=== PATIENT | female | born 1945 | race Caucasian/White ===

== ENCOUNTER 2023-05-03 11:14 | Emergency (ER) | payer MEDICARE, BC ==
[2023-05-03 11:41] VITALS: BP 158/95; PULSE 79; RESP 20; TEMP 97.7; O2SAT 95
--- NOTE | 2023-05-03 11:57 | ERPHSYRPT ---
- History of Present Illness Time Seen by Provider: 05/03/23 11:54 Source: patient Exam Limitations: no limitations Patient Subjective Stated Complaint: C/O left sided rib pain following a fall on Thursday Triage Nursing Assessment: Patient ambulated back to ER. No SOB. No cough. She is alert and oriented. No bruising noted to areas of pain. 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 Physician History: C/O left sided rib pain following a fall on Thursday(5 days ago) States it hurts to bad in left rib area to deep breath. Timing/Duration: day(s) (5 days ago) Severity: moderate Associated Symptoms: other (pain with deep breath) Allergies/Adverse Reactions: doxycycline Allergy (Verified 05/03/23 11:26) erythromycin base [Erythromycin Base] Allergy (Verified 05/03/23 11:24) Hives latex Allergy (Verified 05/03/23 11:24) Hives octreotide Allergy (Verified 05/03/23 11:26) paper tape Allergy (Uncoded 05/03/23 11:24) Hives Home Medications: Cholecalciferol (Vitamin D3) [Cholecalciferol] 0 gm MC DAILY 06/23/13 [History] Furosemide 80 mg [Lasix 80 mg] 80 mg PO DAILY 06/23/13 [History] Glimepiride 4 mg [Amaryl 4 mg] 4 mg PO DAILY 06/23/13 [History] Omeprazole 20 MG [Prilosec 20 mg] 20 mg PO DAILY 06/23/13 [History] Potassium Chloride 20 Meq [Klor-Con 20 MEQ] 20 meq PO DAILY 06/23/13 [History] Rifaximin [Xifaxan] 550 mg PO BID 06/23/13 [History] Spironolactone 25 mg [Aldactone 25 MG] 25 mg PO BID 06/23/13 [History] Zinc 220 mg PO DAILY 06/23/13 [History] atenoloL [Atenolol] 100 mg PO DAILY 06/23/13 [History] Hx Tetanus, Diphtheria Vaccination/Date Given: Yes Hx Influenza Vaccination/Date Given: Yes Hx Pneumococcal Vaccination/Date Given: Yes Immunizations Up to Date: Yes Travel Risk - International Travel Have you traveled outside of the country in past 3 weeks: No - Coronavirus Screening Are you exhibiting any of the following symptoms?: No Close contact with a COVID-19 positive Pt in past 14-21 Days: No - Vaccine Status Have you recieved a Covid-19 vaccination: No - Review of Systems Constitutional: No Symptoms Eyes: No Symptoms Ears, Nose, & Throat: No Symptoms Respiratory: No Symptoms Cardiac: No Symptoms Abdominal/Gastrointestinal: No Symptoms Genitourinary Symptoms: No Symptoms Musculoskeletal: Fall, Other (left rib cage pain) Skin: No Symptoms Neurological: No Symptoms Psychological: No Symptoms Endocrine: No Symptoms Hematologic/Lymphatic: No Symptoms Immunological/Allergic: No Symptoms - Past Medical History Pertinent Past Medical History: Yes Neurological History: No Pertinent History Cardiac History: Hypertension Respiratory History: Other Endocrine Medical History: Diabetes Type II, Liver Disease Musculoskeletal History: Fractures, Osteoporosis GI Medical History: Cirrhosis, Gallbladder Disease, Other Other Medical History: LAUGHLIN, FX STERNUM - Past Surgical History Past Surgical History: Yes Gastrointestinal: Appendectomy, Cholecystectomy, Other Musculoskeletal: Joint Replacement, Other Female Surgical History: Hysterectomy Other Surgical History: Liver transplant 10/28/15, right knee replacement, carpel tunnel, paracentesis, spleenectomy - Social History Smoking Status: Never smoker Exposure to second hand smoke: No Drug Use: none Patient Lives Alone: No - Nursing Vital Signs Nursing Vital Signs: Initial Vital Signs Temperature 97.7 F 05/03/23 11:15 Pulse Rate 79 05/03/23 11:15 Respiratory Rate 20 05/03/23 11:15 Blood Pressure 158/95 05/03/23 11:15 O2 Sat by Pulse Oximetry 95 05/03/23 11:15 Pain Scale Pain Intensity 10 - Physical Exam General Appearance: no apparent distress Eye Exam: PERRL/EOMI Ears, Nose, Throat Exam: normal ENT inspection Neck Exam: normal inspection Respiratory Exam: normal breath sounds, chest tenderness Cardiovascular Exam: regular rate/rhythm, normal heart sounds Gastrointestinal/Abdomen Exam: soft SpO2: 95 - Course Nursing assessment & vital signs reviewed: Yes - Radiology Exams Chest X-ray Interpretation: Reviewed by me, Negative, No Fracture Ribs X-ray Interpretation: Reviewed by me Ordered Tests: Active Orders 24 hr Category Date Time Status CHEST 1 VIEW (PORTABLE) Stat Exams 05/03/23 11:38 Taken RIBS UNILATERAL Stat Exams 05/03/23 11:30 Taken Medication Summary Discontinued Medications Generic Name Dose Route Start Last Admin Trade Name Veronique PRN Reason Stop Dose Admin Lidocaine 1 patch 05/03/23 12:17 05/03/23 12:31 Lidocaine Hcl 1 Patch Patch TOP 05/03/23 12:18 1 patch ONCE ONE Administration - Progress Progress: improved, pain not gone completely Counseled pt/family regarding: diagnosis, need for follow-up, rad results Medical Desision Making - Diagnostic Testing Diagnostic test were ordered, analyzed, and reviewed by me: Yes Radiological Interpretation: Interpreted by me - Risk of complications Low Risk: Low risk of morbidity from additional dx testing or treatment - Departure Departure Disposition: Home Clinical Impression: Contusion of rib on left side Qualifiers: Encounter type: initial encounter Qualified Code(s): S20.212A - Contusion of left front wall of thorax, initial encounter Fall Qualifiers: Encounter type: initial encounter Qualified Code(s): W19.XXXA - Unspecified fall, initial encounter Condition: Stable Critical Care Time: No Referrals: HERO CRUZ MD [Primary Care Provider] - Follow Up with PCP/3 days Instructions: Breathing Exercises, Bruised Rib Additional Instructions: Discharge/Care Plan CHEPE RILEY was seen on 05/03/23 in the Emergency Room. The patient was counseled regarding Diagnosis,Lab results, Imaging studies, need for follow up and when to return to the Emergency Room. Prescriptions given: Discharge Note I have spoken with the patient and/or caregivers. I have explained the patient's condition, diagnosis and treatment plan based on the information available to me at this time. I have answered the patient's and/or caregiver's questions and addressed any concerns. The patient and/or caregivers have as good understanding of the patient's diagnosis, condition and treatment plan as can be expected at this point. The vital signs have been stable. The patient's condition is stable and appropriate for discharge from the emergency department. The patient will pursue further outpatient evaluation with the primary care physician or other designated or consulting physician as outlined in the discharge instructions. The patient and/or caregivers are agreeable to this plan of care and follow-up instructions have been explained in detail. The patient and/or caregivers have received these instruction. The patient/and or caregivers are aware that any significant change in condition or worsening of symptoms should prompt an immediate return to this or the closest emergency department or call 911. CHEPE RILEY was seen on 05/03/23 n the Emergency Room. At that time you were treated for an emergent condition, during your visit Laboratory, Radiology and/or other procedures may have been ordered. It is very important that you follow-up with your Primary Care Physician HERO CRUZ within the next 24-48 hours to review your Emergency Room visit and the final results of testing that was ordered. Some test results such as Urine Cultures, Blood Cultures, and other cultures if ordered will not be finalized for 24-48 hours. If you do not have a Primary Care Provider please call the medical records department at [phone] ext [phone] to obtain a copy of your results or you may sign into our patient portal to obtain these results by visiting us @ [email or web address] and completing the following steps: 1. Click on the Patient Portal link 2. Click the Patient Self Enrollment Link to complete the enrollment form and entering your 3. Once the enrollment form is completed you will receive an email with a temporary ID and password at the email address you provided. 4. Next choose a user name and password. Your user name must be at least 4 characters long and your password must be at least 4 characters long. 5. Choose a security question from the list and provide your answer to the question. If you already have signed into the Health Portal you may access your Health Care Information 27/04 by the following steps: 1. Login to our website @ [email or web address] 2. Enter your original user name and password. FAQS The [facility] Portal is an online tool that contains your Lab Results, Radiology Reports, Visit History, Discharge Instructions and Health Summary Lab and Radiology Results will not be available for 72 hours on the portal. The Portal is a secure site, passwords are encryted and URLs are re-written so they cannot be copied and pasted. You and authorized family members are the only ones who can access your Portal. Also there is a timeout feature that protects your information if you leave the Portal page open. If you have technical difficulty please use the Contact Us link on the page this will allow you to submit any questions you have regarding the Portal or you may contact the Medical Record Department at [phone] ext [phone]. Prescriptions: Lidocaine HCl 5% Patch [Lidoderm Patch 5%] 1 patch TP BID #20 patch
[2023-05-03] MEDS ORDERED: Lidoderm Patch 5% TOP ONE (12:17)
--- NOTE | 2023-05-03 20:03 | XRAY ---
Indication: Pneumonia. Comparison: None Portable chest demonstrates mild bibasilar subsegmental atelectasis/scarring left greater than right. Remaining heart and lungs unremarkable. Bony thorax intact with osteopenia, mild degenerative changes, and mild dextroscoliosis.
--- NOTE | 2023-05-03 20:03 | XRAY ---
Indication: Pain following fall. Comparison: None 2 view left ribs demonstrates osteopenia, mild acromioclavicular degenerative changes, mild multilevel degenerative spondylosis, mild dextroscoliosis, and minimal left base subsegmental atelectasis/scarring. No other bony, articular, or soft tissue abnormalities.
== END 2023-05-03 13:01 | disposition home or self-care (01) ==
LOC: ED 11:14
DX: S20.212A Contusion of left front wall of thorax, initial encounter (principal); W19.XXXA Unspecified fall, initial encounter; I10 Essential (primary) hypertension; E11.9 Type 2 diabetes mellitus without complications; Z79.84 Long term (current) use of oral hypoglycemic drugs; Z79.899 Other long term (current) drug therapy; Z28.310 Unvaccinated for COVID-19
CPT/HCPCS: 71045; 71100; 99282; A9270-GY